=== PATIENT | female | born 1995 | race African-American/Black ===

== ENCOUNTER 2019-12-12 08:22 | Emergency (ER) | payer BC, OTHER ==
--- OUTSIDE RECORDS SUMMARY | 2019-12-12 08:24 | XMS REPORT ---
:1995 [facility] [address] [place] [address] Care Team Providers Name Role Phone TENISHA CASTORENAAHAM Unavailable Unavailable Payers Payer Name Policy Type Policy Number Effective Date Expiration Date Problems This patient has no known problems. Allergies, Adverse Reactions, Alerts Allergy Allergy Status Severity Reaction(s) Onset Inactive Treating Comments Name Type Date Date Clinician iodine DA Active U 2019-03 00:00:0 0 Medications This patient has no known medications. Encounters Start End Encounter Admission Attending Care Care Encounter Date/Time Date/Time Type Type Clinicians Facility Department ID 2019-11-24 2019-11-24 Emergency E [facility] [id number] 00:22:00 00:22:00 2019-05-12 2019-05-12 Emergency E [facility] [id number] 18:03:00 18:03:00 Results Test Description Test Time Test Comments Text Results Atomic Results Result Comments - XR HAND 3+V LT 2019-04-18 09:00:00 Name: ORIANA SIMENTAL : 1995 Age/S: 23 / F [id number] Unit #: [id number] Loc: [place] [address] Phys: Jesus Nichols MD Acct: [id number] Dis Date: Status: REG ER PHONE #: [phone] Exam Date: 04/18/2019 0851 FAX #: Reason: crush injury EXAMS: CPT: [id number] XR HAND 3+[place] [address] Fluoro Time: DAP (Gy m2): Air Kerma (mGy): EXAMINATION: - XR HAND 3+V LT. LOCATION: S17. HISTORY: Crush injury, left hand pain. COMPARISON: None. FINDINGS/ IMPRESSION: Three views of LEFT hand demonstrates no dorsal soft tissue swelling. No radiographic evidence of acute osseous abnormality. Articular spaces are well-maintained. at 0900 Reported and signed by: Ciera Dixon M.D. CC: Jesus Nichols MD PAGE 1 Signed Report Name: ORIANA SIMENTAL [place] : 1995 Age/S: 23 / F [id number] Unit #: [id number] Loc: [place] [address] Phys: Jesus Nichols MD Acct: [id number] Dis Date: Status: REG ER PHONE #: [phone] Exam Date: 04/18/2019 0851 FAX #: Reason: crush injury EXAMS: CPT: [id number] XR HAND 3+[place] [address] Fluoro Time: DAP (Gy m2): Air Kerma (mGy): <Continued> Technologist: Margarette Rondon, RT(R) Trnscb Date/Time: 04/18/2019 (0900) [email or web address] Orig Print D/T: S: 04/18/2019 (0903) PAGE 2 Signed Report URINE CULTURE 2017-06-19 09:26:00 Test Item Value Reference Range Comments CULTURE (AKER) (test cqdu=5651) ESCHERICHIA COLI >100,000 col/mL Escherichia coli Amikacin (test code=1) Ampicillin + Sulbactam (test code=6) Aztreonam (test code=32) Cefepime (test code=51) Cefoxitin (test code=68) Ceftazidime (test code=27) Ceftriaxone (test code=52) Ertapenem (test code=38) Gentamicin (test code=18) Levofloxacin (test code=22) Meropenem (test code=34) Nitrofurantoin (test code=23) Piperacillin + Tazobactam (test code=29) Tetracycline (test code=2) Tobramycin (test code=25) Trimethoprim + Sulfamethoxazole (test code=47) CULTURE (BEAKER) (test yeiv=6924) ESCHERICHIA COLI >100,000 col/mL Escherichia coliof a second type Amikacin (test code=1) Ampicillin + Sulbactam (test code=6) Aztreonam (test code=32) Cefepime (test code=51) Cefoxitin (test code=68) Ceftazidime (test code=27) Ceftriaxone (test code=52) Ertapenem (test code=38) Gentamicin (test code=18) Levofloxacin (test code=22) Meropenem (test code=34) Nitrofurantoin (test code=23) Piperacillin + Tazobactam (test code=29) Tetracycline (test code=2) Tobramycin (test code=25) Trimethoprim + Sulfamethoxazole (test code=47) CULTURE (BEAKER) (test bgcd=1699) <10,000 col/mL Beta-hemolytic streptococcus group B, by serological groupingIf this patient is , please refer to ACOG guidelines for appropriate screening and management of colonized women. 80-89,000 col/mL skin tracey
[2019-12-12 09:25] LABS: Blood Gas Oxyhemoglobin 95.6 % (94-97); Blood O2 Saturation 97.2 % (92-98.5)
[2019-12-12 09:48] LABS: Absolute Lymphocytes (CBC) 2.4 K/uL (0.7-4.9); Basophils % 0.7 % (0-1.3); Lymphocytes % 34.2 % (15.3-44.8); MPV 8.6 fL (7.6-11.3)
--- NOTE | 2019-12-12 09:50 | RAD REPORT ---
EXAM DESCRIPTION: Patrick Patterson (2 Views)12/12/2019 8:58 am CLINICAL HISTORY: Chest pain COMPARISON: None FINDINGS: Small granuloma suspected within the right lung Small calcified hilar lymph nodes are noted. Lungs appear clear of acute infiltrate The heart is normal size IMPRESSION: No acute abnormalities displayed
[2019-12-12 10:02] LABS: BUN Blood Urea Nitrogen 15 mg/dL (7-18); Bicarbonate 28 mmol/L (21-32); Glucose Level 92 mg/dL (74-106); Potassium 3.9 mmol/L (3.5-5.1); Sodium Level 141 mmol/L (136-145)
[2019-12-12 10:24] LABS: Urine Blood TRACE (NEG); Urine Glucose NEGATIVE (NEG); Urine Protein NEGATIVE (NEG); Urine Specific Gravity >1.030 (1.005-1.030)
[2019-12-12] MEDS ORDERED: DIPHENHYDRAMINE 50 MG/ML VIAL ONE (10:38)
[2019-12-12] MEDS ORDERED: METHYLPREDNISOLONE 125 MG INJ ONE (10:38)
[2019-12-12] MEDS ORDERED: FAMOTIDINE 20 MG/2 ML VIAL IV ONE ×2 (10:39→10:46)
--- NOTE | 2019-12-12 11:18 | RAD REPORT ---
EXAM DESCRIPTION: Donny Angio12/12/2019 11:01 am CLINICAL HISTORY: Neck swelling/neck pain COMPARISON: None TECHNIQUE: 50 cc Isovue 370 was administered intravenously. 3D MIP reconstruction performed All CT scans are performed using dose optimization technique as appropriate and may include automated exposure control or mA/KV adjustment according to patient size. FINDINGS: The common carotid, internal carotid and external carotid arteries are normal. Right vertebral artery is little bit more dominant than the left. No abnormality noted. The adenoids and tonsils are prominent IMPRESSION: Unremarkable CT angiogram neck Prominence of the adenoids could represent hypertrophy or mass such as lymphoma. Prominence of the tonsils probably hypertrophy. A tonsillitis can also have this appearance and shou ld be correlated clinically NASCET criteria used. Mild 0-49% stenosis Moderate 50-69% stenosis Severe 70-99% stenosis
--- NOTE | 2019-12-12 11:45 | ER ---
Nurse's Notes [facility] Name: Ngozi Lambert Age: 24 yrs Sex: Female : 1995 Arrival Date: 12/12/2019 Time: 08:25 Bed 13 Private MD: Diagnosis: Acute pharyngitis Presentation: 12/12 08:31 Presenting complaint: Patient states: throat feels swollen X 2 days, took benadryl, iw feels like it's tightening, also has cough and sharp chest pain with she coughs, no fever at home. Transition of care: patient was not received from another setting of care. Onset of symptoms was December 10, 2019. Risk Assessment: Do you want to hurt yourself or someone else? Patient reports no desire to harm self or others. Initial Sepsis Screen: Does the patient meet any 2 criteria? No. Patient's initial sepsis screen is negative. Does the patient have a suspected source of infection? No. Patient's initial sepsis screen is negative. Care prior to arrival: None. 08:31 Method Of Arrival: Ambulatory iw 08:35 Acuity: ALEJO 3 iw Triage Assessment: 08:37 Respiratory: Reports shortness of breath cough that is Onset: The symptoms/episode tw2 began/occurred 2 days ago, the patient has mild shortness of breath. RN CHARGE: 08:33 LMP N/A - control method iw Historical: - Allergies: 08:33 shrimp; iw - Home Meds: 08:33 Wellbutrin Oral [Active]; iw - PMHx: 08:33 Bipolar disorder; Depression; iw - PSHx: 08:33 None; iw - Immunization history:: Adult Immunizations not up to date. - Social history:: Smoking status: Patient denies any tobacco usage or history of. - Ebola Screening: : Patient negative for fever greater than or equal to 101.5 degrees Fahrenheit, and additional compatible Ebola Virus Disease symptoms Patient denies exposure to infectious person Patient denies travel to an Ebola-affected area in the 21 days before illness onset No symptoms or risks identified at this time. Screenin:37 Abuse screen: Denies threats or abuse. Nutritional screening: No deficits noted. tw2 Tuberculosis screening: No symptoms or risk factors identified. Fall Risk None identified. Assessment: 08:37 Respiratory: Airway is patent Respiratory effort is even, unlabored. tw2 08:37 General: Appears distressed. General: Appears in no apparent distress. Behavior is iw calm, cooperative. Pain: Complains of pain in throat Pain currently is 6 out of 10 on a pain scale. Neuro: Level of Consciousness is awake, alert, obeys commands, Oriented to person, place, time, situation, Moves all extremities. Full function. Cardiovascular: Rhythm is regular. Respiratory: Airway is patent Respiratory effort is even, unlabored, Respiratory pattern is regular, symmetrical, Breath sounds are clear bilaterally. EENT: Throat is reddened bilaterally with gag reflex present. EENT: Reports difficulty swallowing. Derm: Skin is intact, is healthy with good turgor. Musculoskeletal: Range of motion: intact in all extremities. Vital Signs: 08:33 BP 123 / 88; Pulse 78; Resp 16; Temp 98.2; Pulse Ox 100% ; Weight 104.33 kg; Height 5 iw ft. 11 in. (180.34 cm); 09:55 BP 111 / 81; Pulse 70; Resp 16; Temp 98.0(O); Pulse Ox 100% on R/A; mh5 12:00 BP 112 / 80; Pulse 77; Resp 16; Pulse Ox 100% on R/A; sg 08:33 Body Mass Index 32.08 (104.33 kg, 180.34 cm) ED Course: 08:25 Patient arrived in ED. rg4 08:28 Lucas Adorno MD is Attending Physician. rn 08:28 Panda Mckinley RN is Primary Nurse. em 08:28 Bed in low position. Call light in reach. tw2 08:32 Triage completed. iw 08:35 Arm band placed on. iw 08:37 Daniel Jara PA is PHCP. jmm 08:37 Lucas Adorno MD is Attending Physician. jmm 08:39 Primary Nurse role handed off by Panda Mckinley RN iw 08:39 Cathy Gonzalez, ALEJANDRO is Primary Nurse. iw 08:49 Flu Sent. tw2 08:49 Strep Sent. tw2 08:54 Chest Pa And Lat (2 Views) XRAY In Process Unspecified. EDMS 09:16 Primary Nurse role handed off by Cathy Gonzalez, RN sg 09:16 Yogi Loco, RN is Primary Nurse. sg 09:52 Initial lab(s) drawn, by dc, sent to lab. Inserted saline lock: 22 gauge in right 5 antecubital area, using aseptic technique. Blood collected. 09:53 Warm blanket given. Pulse ox on. NIBP on. 5 09:53 Urine collected: clean catch specimen, clear. [facility] 09:54 BMP Sent. [facility] 10:50 IV discontinued, intact, bleeding controlled, No redness/swelling at site. Pressure sg dressing applied, IV in RAC due to infiltration. 10:55 Inserted saline lock: 22 gauge in left antecubital area, using aseptic technique. Blood sg collected. 11:01 Patient moved back from IA. sg 11:02 CT Neck Angio In Process Unspecified. EDMS 12:41 No provider procedures requiring assistance completed. iw Administered Medications: 10:50 Drug: diphenhydrAMINE 50 mg Route: IVP; Site: left antecubital; sg 10:50 Drug: SOLU-Medrol 125 mg Route: IVP; Site: left antecubital; sg 10:50 Drug: Pepcid 20 mg Route: IVP; Site: left antecubital; sg Outcome: 11:45 Discharge ordered by . rudi 12:42 Discharged to home ambulatory. sg 12:42 Condition: good 12:42 Discharge instructions given to patient, Instructed on discharge instructions, follow up and referral plans. safety practices, Demonstrated understanding of instructions, follow-up care, Prescriptions given X 1. 12:46 Patient left the ED. Signatures: Dispatcher [employer] EDMS Yogi Loco RN RN Daniel Jara PA PA jmm Munoz, Edgar, RN RN em Williams, Irene, RN RN Lucas Adorno MD MD rn Wise, Tara, RN RN [facility] Amara Mario Maria [facility] Corrections: (The following items were deleted from the chart) 08:37 08:31 Acuity: ALEJO 4 [facility]
--- NOTE | 2019-12-12 11:45 | EDPHYS ---
Physician Documentation [facility] Name: Ngozi Lambert Age: 24 yrs Sex: Female : 1995 Arrival Date: 12/12/2019 Time: 08:25 Bed 13 Private MD: ED Physician Lucas Adorno HPI: 12/12 09:14 This 24 yrs old Black Female presents to ER via Ambulatory with complaints of Shortness jmm Of Breath, Chest Pain. 09:14 The patient has shortness of breath at rest. Onset: The symptoms/episode began/occurred jmm gradually, 1 week(s) ago. Duration: The symptoms are continuous. The patient's shortness of breath is aggravated by nothing, is alleviated by nothing. This is a 24 year old female with a history of bipolar, depression that presents to the ED with complaints of swelling to her neck, shortness of breath, cough, headaches. Patient states she has been evaluated by her PCP with normal US and TSH. Patient states she awoke with a headache with increased swelling to her neck. Patient states she has also had a cough with chest pain. . DEVELOPMENT EDUCATOR: 08:33 LMP N/A - control method iw Historical: - Allergies: 08:33 shrimp; iw - Home Meds: 08:33 Wellbutrin Oral [Active]; iw - PMHx: 08:33 Bipolar disorder; Depression; iw - PSHx: 08:33 None; iw - Immunization history:: Adult Immunizations not up to date. - Social history:: Smoking status: Patient denies any tobacco usage or history of. - Ebola Screening: : Patient negative for fever greater than or equal to 101.5 degrees Fahrenheit, and additional compatible Ebola Virus Disease symptoms Patient denies exposure to infectious person Patient denies travel to an Ebola-affected area in the 21 days before illness onset No symptoms or risks identified at this time. ROS: 09:14 Constitutional: Negative for fever, chills, and weight loss. jmm 09:14 Abdomen/GI: Negative for abdominal pain, nausea, vomiting, diarrhea, and constipation, Back: Negative for injury and pain. 09:14 ENT: Positive for sore throat. 09:14 Cardiovascular: Positive for chest pain, with cough. 09:14 Respiratory: Positive for cough. 09:14 All other systems are negative. Exam: 09:14 Constitutional: This is a well developed, well nourished patient who is awake, alert, jmm and in no acute distress. Head/Face: atraumatic. Eyes: EOMI, no conjunctival erythema appreciated 09:14 Neck: Trachea midline, Supple Chest/axilla: Normal chest wall appearance and motion. 09:14 Back: Normal ROM Skin: General appearance color normal MS/ Extremity: Moves all extremities, no obvious deformities appreciated, no edema noted to the lower extremities Neuro: Awake and alert, normal gait Psych: Behavior is normal, Mood is normal, Patient is cooperative and pleasant 09:14 ENT: Posterior pharynx: Uvula: normal, swelling, is not appreciated, erythema, that is mild. 09:14 Cardiovascular: Rate: normal, Rhythm: regular, Pulses: no pulse deficits are appreciated. 09:14 Respiratory: the patient does not display signs of respiratory distress, Respirations: normal, Breath sounds: are clear throughout. 09:14 Abdomen/GI: Inspection: abdomen appears normal, Bowel sounds: normal, in all quadrants, Palpation: abdomen is soft and non-tender, in all quadrants. Vital Signs: 08:33 BP 123 / 88; Pulse 78; Resp 16; Temp 98.2; Pulse Ox 100% ; Weight 104.33 kg; Height 5 iw ft. 11 in. (180.34 cm); 09:55 BP 111 / 81; Pulse 70; Resp 16; Temp 98.0(O); Pulse Ox 100% on R/A; mh5 12:00 BP 112 / 80; Pulse 77; Resp 16; Pulse Ox 100% on R/A; sg 08:33 Body Mass Index 32.08 (104.33 kg, 180.34 cm) iw MDM: 08:46 Patient medically screened. [facility] 11:43 Data reviewed: vital signs, nurses notes. Counseling: I had a detailed discussion with [facility] the patient and/or guardian regarding: the historical points, exam findings, and any diagnostic results supporting the discharge/admit diagnosis, lab results, radiology results, the need for outpatient follow up, to return to the emergency department if symptoms worsen or persist or if there are any questions or concerns that arise at home. ED course: Patient is alert and non toxic in appearance in the ED. Swelling sensation in throat most likely due to acute pharyngitis. Will treat with oral abx and the patient is otherwise given strict return precautions. Patient understood and agrees with the plan of care. . 12/12 08:37 Order name: Strep; Complete Time: 10:05 [facility] 12/12 08:37 Order name: Flu; Complete Time: 10:05 [facility] 12/12 09:14 Order name: CBC with Diff; Complete Time: 10:05 [facility] 12/12 09:14 Order name: BMP; Complete Time: 10:05 [facility] 12/12 09:14 Order name: ABG; Complete Time: 10:05 [facility] 12/12 09:19 Order name: Throat Culture [facility] 12/12 08:37 Order name: Chest Pa And Lat (2 Views) XRAY; Complete Time: 10:05 [facility] 12/12 09:14 Order name: CT Neck Angio; Complete Time: 11:20 [facility] 12/12 09:14 Order name: Saline Lock; Complete Time: 09:38 [facility] 12/12 10:09 Order name: Urine Dipstick--Ancillary (enter results); Complete Time: 10:30 bd 12/12 10:09 Order name: Urine --Ancillary (enter results); Complete Time: 10:30 bd Administered Medications: 10:50 Drug: diphenhydrAMINE 50 mg Route: IVP; Site: left antecubital; sg 10:50 Drug: SOLU-Medrol 125 mg Route: IVP; Site: left antecubital; sg 10:50 Drug: Pepcid 20 mg Route: IVP; Site: left antecubital; sg Disposition: 16:45 Co-signature as Attending Physician, Lucas Adorno MD. rn Disposition: 12/12/19 11:45 Discharged to Home. Impression: Acute pharyngitis. - Condition is Stable. - Discharge Instructions: Pharyngitis. - Prescriptions for Amoxicillin 875 mg Oral Tablet - take 1 tablet by ORAL route every 12 hours for 10 days; 20 tablet. - Work release form, Medication Reconciliation Form, Thank You Letter, Antibiotic Education, Prescription Opioid Use form. - Follow up: Private Physician; When: 2 - 3 days; Reason: Recheck today's complaints, Continuance of care, Re-evaluation by your physician. Signatures: Dispatcher [employer] EDYogi Cotto RN Daniel Orlando PA PA jmm Williams, Irene RN ALEJANDRO Lucas Adonro MD MD rn rehab: (The following items were deleted from the chart) 12:46 11:45 12/12/2019 11:45 Discharged to Home. Impression: Acute pharyngitis. Condition is iw Stable. Forms are Medication Reconciliation Form, Thank You Letter, Antibiotic Education, Prescription Opioid Use. Follow up: Private Physician; When: 2 - 3 days; Reason: Recheck today's complaints, Continuance of care, Re-evaluation by your physician. rudi
[2019-12-12 19:54] VITALS: O2SAT 100
[2019-12-12 20:14] VITALS: BP 111/81; TEMP 98
== END 2019-12-12 12:46 | disposition home or self-care (01) ==
LOC: ER 08:22
DX: J02.9 Acute pharyngitis, unspecified (principal); F31.9 Bipolar disorder, unspecified; Z91.013 Allergy to seafood
CPT/HCPCS: 87070; 85025; 80048; 36415; 81025; 87081; 81003; 87804 ×2; 70498; 71046; 82805; 96375; 96374; 99284; Q9967; J1200; J2930